=== PATIENT | female | born 1990 | race Caucasian/White ===

== ENCOUNTER 2018-05-18 20:28 | Emergency (ER) | payer BC, OTHER ==
[~2018-05-18 20:28] MED LIST: AMOX-362 PO; AMOX-559 PO; CAR6.25 PO; CEFU500T10 PO; CYCL10TA29 PO; HYDR-317 PO; HYDR-385 PO; HYDR-653 PO; IBUP-56 PO; IBUP600T22 PO; LIDO20SO21 MM; LOR5/325 PO; OXYC1TAB54 GT; OXYC1TAB54 PO; OXYC5TAB38 PO; PANT40SU3 PO; PANT40TA65 PO; PEN250 PO; TRAM-420 PO; [UNRECOGNIZED DRUG - CODE] PO
--- NOTE | 2018-05-18 20:41 | ER Report ---
History and Physical Time Seen By MD: 20:40 Hx. of Stated Complaint: patient has had sinus pressure/congestion and runny nose for about a week, patient states headache started this monring, it is in [place] area. HPI/ROS CHIEF COMPLAINT: headache and sinus pressure HISTORY OF PRESENT ILLNESS: This is a 27 year old female. She has had a history of frequent sinus infections in the past. Recent pain in frontal sinuses with increased congestion and sinus drainage for the last 10 days. Having increasing pain, much worse tonight. Pressure and throbbing in frontal area. No fevers at this time. Doing saline rinses, but not helping. Mild cough. Normal vision and hearing. No weakness or sensory changes. Allergies: Coded Allergies: No Known Drug Allergies (Unverified , 05/18/18) Home Meds Active Scripts Hydrocodone Bit/Acetaminophen (HYDROCODON-ACETAMINOPHEN 5-325) 1 Each Tablet, 1 EACH PO Q4H PRN for PAIN, #6 TAB 0 Refills Prov:FRANCISCO LOPEZ MD 05/18/18 Mometasone Furoate (NASONEX) 17 Gm [place], 1 SPRAY KAROLYN QDAY, #1 BOTTLE 0 Refills Prov:FRANCISOC LOPEZ MD 05/18/18 Amoxicillin/Pot Clav 875-125 Mg Tab (AUGMENTIN 875-125 TABLET) 1 Each Tablet, 1 TAB PO Q12H, #20 TAB 0 Refills Prov:FRANCISCO LOPEZ MD 05/18/18 Reported Medications Pantoprazole Sodium (PROTONIX) 40 Mg Granpkt.dr, 40 MG PO QDAY, PACK 03/01/17 Discontinued Scripts Hydrocodone Bit/Acetaminophen (HYDROCODON-ACETAMINOPHEN 5-325) 1 Each Tablet, 1 EACH PO Q4H PRN for PAIN, #8 TAB 0 Refills Prov:FRANCISCO LOPEZ MD 03/01/17 Amoxicillin (AMOXICILLIN) 500 Mg Capsule, 1 CAP PO Q8H, #30 CAPSULE 0 Refills Prov:FRANCISCO LOPEZ MD 03/01/17 Reviewed Nurses Notes: Yes Hx Smoking: No Smoking Status: Never Smoker Hx Substance Use Disorder: No Hx Alcohol Use: No Constitutional Vital Sign - Last 24 Hours 05/18/18 05/18/18 05/18/18 05/18/18 20:32 20:43 20:58 21:00 Temp 97.9 Pulse 76 98 89 Resp 16 B/P (MAP) 129/71 115/74 (88) Pulse Ox 95 96 90 O2 Delivery Room Air 05/18/18 05/18/18 05/18/18 05/18/18 21:13 21:28 21:30 21:43 Pulse 84 79 78 B/P (MAP) 105/62 (76) Pulse Ox 93 97 95 05/18/18 05/18/18 05/18/18 05/18/18 21:58 22:00 22:13 22:23 Pulse 77 88 B/P (MAP) 104/83 (90) 108/69 (82) Pulse Ox 97 97 Physical Exam General Appearance: Alert, no distress. Eyes: Pupils equal and round no injection. ENT: Normal oral mucosa. Posterior oropharynx was erythematous with thick pu rulent post-nasal drainage. Nasal mucosa is erythematous with a lot of mucous. Moist mucous membranes. Tympanic membranes are normal. Neck: Neck is supple and non tender. Respiratory: Chest is non tender, lungs are clear to auscultation. Cardiac: regular rate and rhythm Neuro: Alert and oriented x3, no focal deficits noted. Skin: No rashes or lesions. DIFFERENTIAL DIAGNOSIS: After history and physical exam differential diagnosis was considered for patient with sinus congestion and frontal headache with a history of chronic recurrent sinus infections. The influenza viral syndrome versus bacterial sinus infection given her history Medical Decision Making Data Points Laboratory Hematology Test 05/18/18 20:36 Influenza Virus Type A (PCR) Negative (NEGATIVE) Influenza Virus Type B (PCR) Negative (NEGATIVE) Chemistry Test 05/18/18 20:36 Influenza Virus Type A (PCR) Negative (NEGATIVE) Influenza Virus Type B (PCR) Negative (NEGATIVE) ED Course/Re-evaluation ED Course Influenza negative. Discussed with her that she needs to follow up with yourand throat. We'll start Nasonex, Augmentin, and did give her some pain medicine to use for the next 24-48 hours. Decision to Disposition Date: May 18, 2018 Decision to Disposition Time: 22:16 Depart Departure Latest Vital Signs Vital Signs Date Time Temp Pulse Resp B/P (MAP) Pulse Ox O2 Delivery O2 Flow Rate FiO2 05/18/18 22:23 108/69 (82) 05/18/18 22:13 88 97 05/18/18 20:32 97.9 16 Room Air Impression: Primary Impression: Sinusitis Condition: Improved Disposition: HOME OR SELF-CARE New Scripts Hydrocodone Bit/Acetaminophen (HYDROCODON-ACETAMINOPHEN 5-325) 1 Each Tablet 1 EACH PO Q4H PRN for PAIN, #6 TAB 0 Refills Prov: FRANCISCO LOPEZ MD 05/18/18 Mometasone Furoate (NASONEX) 17 Gm [place] 1 SPRAY KAROLYN QDAY, #1 BOTTLE 0 Refills Prov: FRANCISCO LOPEZ MD 05/18/18 Amoxicillin/Pot Clav 875-125 Mg Tab (AUGMENTIN 875-125 TABLET) 1 Each Tablet 1 TAB PO Q12H, #20 TAB 0 Refills Prov: FRANCISCO LOPEZ MD 05/18/18 Patient Instructions: Sinusitis (ED) Additional Instructions: We recommend follow-up with ENT for further evaluation of your sinus problems. Augmentin 875/125 twice a day for 10 days. Nasonex nasal spray, 1 spray per nostril twice a day. Ibuprofen 200mg over the counter tablets, take 4 tablets every 8 hours as needed for pain. Lortab 5/325, one every 4 hours as needed for severe pain Problem Qualifiers Primary Impression: Sinusitis Sinusitis location: frontal Chronicity: acute Recurrence: recurrent Qualified Codes: J01.11 - Acute recurrent frontal sinusitis FRANCISCO LOPEZ MD May 18, 2018 20:41
[2018-05-18] MEDS ORDERED: ACET/HYDROC 5/325MG TH ER ONLY 2 TAB/BOTTLE PO ONE (22:15)
[2018-05-18] MEDS ORDERED: AMOX/CLAV 875 MG TAB PO ONE (22:15)
[2018-05-18] MEDS ORDERED: MOMR ENA (22:19)
[2018-05-18] MEDS ORDERED: AMOX-559 PO (22:19)
[2018-05-18] MEDS ORDERED: LOR5/325 PO (22:19)
[2018-05-18 22:23] VITALS: BP 108/69
== END 2018-05-18 22:39 | disposition home or self-care (01) ==
LOC: ER 20:41
DX: J01.11 Acute recurrent frontal sinusitis (principal)
CPT/HCPCS: 87502; 99283

== ENCOUNTER 2018-05-27 20:19 | Emergency (ER) | payer OTHER, BC ==
[~2018-05-27 20:19] MED LIST changes: +MOMR ENA
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
[2018-05-27 20:28] VITALS: BP 131/65
[2018-05-27] MEDS ORDERED: IBUPROFEN 800 MG TAB PO ONE (20:40)
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
== END 2018-05-27 22:31 | disposition home or self-care (01) ==
LOC: ER 20:44
DX: S50.01XA Contusion of right elbow, initial encounter (principal); S70.01XA Contusion of right hip, initial encounter; V43.42XA Person boarding or alighting a car injured in collision with other type car, initial encounter
CPT/HCPCS: 99283